=== PATIENT | male | born 1950 | race Hispanic/Latino ===

== ENCOUNTER 2017-11-07 06:07 | Day surgery (SDC) | payer MEDICARE ==
[2017-11-03 10:09] VITALS: BMI 25.0
--- NOTE | 2017-11-05 10:37 | HP ---
Copied To: Scarlett Richardson MD Attending MD: Scarlett Richardson MD REASON FOR ADMISSION: Left heart catheterization, possible angioplasty. BRIEF CLINICAL HISTORY: This is a 67-year-old male with past medical history significant for hypertension since 1987, Deep's thyroiditis since 1984, now on maintenance of Synthroid. Had 2 episodes of chest pain 4 weeks ago and some dyspnea on exertion with the pain going to the left arm and complete resolution at rest. Patient underwent a stress test [address] Bernal in his office dated 10/20/2017. During stress test, patient walked on the treadmill for 7 minutes and [address]-T changes, 1.[address] changes II, III, aVF. Also patient had nuclear scan, suspicious small inferolateral reversible ischemia, so patient is scheduled for elective cardiac catheterization, possible angioplasty. PAST MEDICAL HISTORY: Significant for Deep's thyroiditis since 1984, on now maintenance of Synthroid; history of hypertension since 1987. SOCIAL HISTORY: Denies any history of alcohol abuse. Ex-smoker, quit in 1987. FAMILY HISTORY: Significant for coronary artery disease. CURRENT MEDICATIONS: Patient is taking amlodipine 10 mg daily, aspirin 81 mg daily, lisinopril and hydrochlorothiazide combination, 20 mg of lisinopril and 25 of hydrochlorothiazide. Also takes 25 mcg of Synthroid daily for maintenance dose. ALLERGIES: NO KNOWN DRUG ALLERGIES. REVIEW OF SYSTEMS: As per HPI. PHYSICAL EXAMINATION: VITAL SIGNS: Height of the patient 5 feet 8 inches. Weight of the patient 165 pounds, body mass index 28 kg/sq m. Rest of the examination as follows: Heart rate 71, blood pressure 150/75. HEENT: PERRLA, extraocular muscles intact. NECK: Supple, no carotid bruit or thyromegaly. CHEST: Clear to auscultation. HEART: S1, S2, regular. ABDOMEN: Soft. EXTREMITIES: Clubbing and cyanosis, negative. LABORATORY DATA: Blood work pending. IMPRESSION: A 67-year-old male with past medical history significant for hypertension since 1987, history of Deep's thyroiditis since 1984, now on maintenance of Synthroid, complaining of 2 episodes of chest pain. Patient underwent a stress test which was abnormal, suggestive of ischemia, inferolateral and II, III, aVF as well as nuclear scan is also positive, reversible inferolateral suspicious for ischemia, ejection fraction 73%. Patient did EKG that shows normal sinus, right bundle-branch block, no acute ST-T changes noted. RECOMMENDATIONS: We will check the blood workup and if within normal, we will proceed for cardiac catheterization. Risks, benefits and alternatives discussed with patient. Patient agreeable to proceed for cardiac catheterization. Further recommendations after the cardiac catheterization. Thank you doctor for providing the opportunity in taking care of patient Herman Ball. Scarlett Richardson MD cc: Amador / Kamille MTDThomas
[2017-11-07 06:44] LABS: BASO # 0.05 K/mm3 (0.0-2.0); BASO % 0.7 % (0.0-3.0); EOS # 0.2 (0.0-0.7); EOS % 2.7 % (1.5-5.0); GRAN # 4.36 (1.4-6.5); GRAN % 56.9 % (50.0-68.0); HEMOGLOBIN 14.6 g/dL (14.0-18.0); LYMPH # 2.5 (1.2-3.4); MEAN CELL VOLUME 84.2 fl (80.0-105.0); MEAN CORPUSCULAR HEMOGLOBIN 29.3 pg (25.0-35.0); MEAN CORPUSCULAR HGB CONC 34.8 g/dl (31.0-37.0); MONO # 0.6 (0.1-0.6); MONO % 7.7 % (1.0-6.0); RBC 4.99 10^6/uL (3.5-6.1); RED CELL DISTRIBUTION WIDTH 13.1 % (11.5-14.5); WHITE BLOOD COUNT 7.7 10^3/ul (4.5-11.0)
[2017-11-07] MEDS ORDERED: Lidocaine PF 2% (5 ml) Inj (For Cardiac Arrhy) ONE (06:47)
[2017-11-07] MEDS ORDERED: Iodixanol 320 MG/ML 200 ML BOTTLE IV ONE (06:48)
[2017-11-07] MEDS ORDERED: Iohexol 350mgl/ml 50 ML ONE (06:48)
[2017-11-07] MEDS ORDERED: Iodixanol 320 MG/ML 100 ML BOTTLE IV ONE (06:48)
[2017-11-07] MEDS ORDERED: Phenylephrine 10 mg/ml Inj ONE (06:49)
[2017-11-07 06:53] LABS: BLOOD UREA NITROGEN 18 mg/dL (7-21); CALCIUM 9.6 mg/dL (8.4-10.5); GFR NON-AFRICAN AMERICAN > 60; PARTIAL THROMBOPLASTIN TIME 29.2 Seconds (25.1-36.5); PROTHROMBIN TIME 11.5 SECONDS (9.4-12.5)
[2017-11-07] MEDS ORDERED: Nitroglycerin 50mg in D5W 50 MG/250 ML BOTTLE IV ONE (06:58)
[2017-11-07] MEDS ORDERED: Verapamil 2 ML ONE (07:31)
[2017-11-07] MEDS ORDERED: Midazolam 2 MG/2 ML VIAL ONE (08:07)
--- NOTE | 2017-11-07 08:54 | CARD ---
APPROVED REPORT Date of service: 11/07/2017 EKG Measurement Heart [id number] <Conclusion> Sinus bradycardia Right bundle branch block
[2017-11-07] MEDS ORDERED: Bacitracin 500 Units/gm Oint Foilpak UD TOP ONE (09:08)
[2017-11-07] MEDS ORDERED: Sodium Chloride 0.9% 1,000 ML IV SCH (09:15)
[2017-11-07 09:29] VITALS: RESP 18; TEMP 97.8
[2017-11-07 11:11] VITALS: O2SAT 96
[2017-11-07 11:36] VITALS: BP 122/64; PULSE 66
[2017-11-07] MEDS ORDERED: Bacitracin 500 Units/gm Oint Foilpak UD ONE (11:37)
--- NOTE | 2017-11-07 13:03 | CPOSTOP ---
Copied To: Scarlett Richardson MD Attending MD: Scarlett Richardson MD DATE: 11/07/2017 PHYSICIAN: Scarlett Richardson MD SPLUNK DASHBOARD DEVELOPER: NIKOLAI Sotelo. TYPE OF ANESTHESIA: Moderate conscious sedation, total 2 mg of Versed and 100 of fentanyl given. PRE-PROCEDURE DIAGNOSES: Unstable angina, abnormal stress test. PROCEDURE PERFORMED: Left heart catheterization. FINDINGS: Nonobstructive coronary artery disease. FINAL DIAGNOSIS: Multivessel nonobstructive coronary artery disease, small vessel disease. POST PROCEDURE CONDITION: The patient's condition is stable. VASCULAR ACCESS SITE: Left radial artery. CLOSURE DEVICE APPLIED: TR band. TOTAL RADIATION DOSE: 4648.7 milligray unit. TOTAL FLUORO TIME: 2.3 minutes. Scarlett Richardson MD
--- NOTE | 2017-11-07 14:45 | CARD ---
APPROVED REPORT Date of service: 11/07/2017 Procedure(s) performed: Left Heart Catheterization HISTORY The patient is a 67 year-old male with a history of : most recent EF: 73%. (EF Method: RADIONUCLIDE), tobacco history() : The patient is a former smoker , hypertension , dyslipidemia , Had an abnormal stress test ,small infero-lateral defect suspicious for Ischemia.. INDICATION The indication(s) include : positive stress test. CASE TECHNIQUE The patient was brought electively to the Cardiac Catheterization Laboratory in a fasting state and was prepped and draped in a sterile manner. The left wrist was infiltrated with 2% Lidocaine subcutaneous anesthesia. A 6FR GLIDESHEATH ACCESS KIT sheath was inserted into the left radial artery without difficulty. Coronary angiography was performed using coronary diagnostic catheters. The left coronary system was accessed and visualized with a Diagnostic ,5 Fr JL 4 catheter. The right coronary system was accessed and visualized with a Diagnostic ,5 Fr JR 4 catheter. The left ventricle was accessed and visualized with a 5 Fr Pigtail 145 (Angled) catheter. Left ventricular/Aortic Valve gradient assessed on pullback. Left ventriculogram was performed in MARTIN projection. Closure device was deployed with a Fr TR Band (Regular) without any complications. The patient tolerated the procedure well and there were no complications associated with the procedure. Vessel Analysis The patient's coronary anatomy is co-dominant. The left main coronary artery is a medium size vessel with diffuse calcification noted throughout this vessel and without significant stenosis. The left main bifurcates to the left anterior descending and circumflex. The left anterior descending artery is a medium size vessel with diffuse calcification noted throughout this vessel and without significant stenosis. There is a 40-50% stenosis in the mid segment. The first diagonal branch is a small size vessel with diffuse calcification noted throughout this vessel and with significant stenosis. D1 is a small calibre vessel ,less than 1.5-2 mm vessel, not suitable for PCI. There is a 80-90% stenosis in the proximal segment, Longtubular lesion. and also 80 % ostial stenosis The second diagonal branch is a small size vessel with diffuse calcification noted throughout this vessel and without significant stenosis. The circumflex artery is a medium size vessel with diffuse calcification noted throughout this vessel and without significant stenosis. There is a 60-70% stenosis in the distal segment. but non focal flow limiting stenosis. The first obtuse marginal branch is a medium size vessel with diffuse calcification noted throughout this vessel and without significant stenosis. The second obtuse marginal branch is a small size vessel with diffuse calcification noted throughout this vessel and without significant stenosis. The third obtuse marginal branch is a small size vessel with diffuse calcification noted throughout this vessel and without significant stenosis. The left posterior descending artery is a medium size vessel with diffuse calcification noted throughout this vessel and without significant stenosis. The ramus intermedius artery is a medium size vessel with diffuse calcification noted throughout this vessel and without significant stenosis. The right coronary artery is a medium size vessel with diffuse calcification noted throughout this vessel and without significant stenosis. There is a 30% stenosis in the mid segment. and has 40-50% stenosis in Distal segment, diffusely diseased. The right posterior descending artery is a medium size vessel . The right posterolateral branch is a small size vessel with diffuse calcification noted throughout this vessel and without significant stenosis. Left Ventricle The left ventricle is normal in size with normal contractility. There was no cardiomyopathy. The left ventricular ejection fraction is estimated to be 65%. The left ventricular end diastolic pressure is 15 mmHg. There was no gradient across the aortic valve upon pullback. Conclusion Diffuse atherosclerotic disease in major epicardial coronaries., but non flow limiting. Small vessel disease D1 80-90% proximal and ostial stenoses, small calibre vessel less than 1.5-2 mm not suitable for PCI Recommendations Aggressive Medical TherapyCardiac Risk Reduction Program Add lipitor in current regimen F/u stress test in one year after aggressive medical treatment. Cc; dr. English.
== END 2017-11-07 12:15 | disposition home or self-care (01) ==
LOC: CATH 06:07
PROVIDERS: ATTEND Internal Medicine Cardiovascular Disease
DX: I25.110 Atherosclerotic heart disease of native coronary artery with unstable angina pectoris (principal); I10 Essential (primary) hypertension; E78.5 Hyperlipidemia, unspecified; E06.3 Autoimmune thyroiditis; I45.10 Unspecified right bundle-branch block; Z87.891 Personal history of nicotine dependence
CPT/HCPCS: 36415; 80048; 85025; 85610; 85730; 86850; 86900; 93005; 93458; 99152; C1769; C1887 ×2; J1644 ×2; J2250; J3010; J7030; J7040; Q9966